=== PATIENT | male | born 1945 | race Caucasian/White ===

== ENCOUNTER 2018-01-11 10:19 | Emergency (ER) | payer MEDICARE, OTHER ==
[2018-01-11] MEDS: cefTRIAXone 1 GM, Lidocaine 1% 2.1 ML IM ONE ×2 (10:45)
--- NOTE | 2018-01-11 10:45 | EDM.PDOC ---
ED HPI GENERAL MEDICAL PROBLEM - General Chief Complaint: Upper Extremity Injury/Pain Stated Complaint: RED STREAK ON L WRIST,SWOLLEN L THUMB Time Seen by Provider: 01/11/18 10:30 Source of Information: Reports: Patient, Family History Limitations: Reports: No Limitations - History of Present Illness INITIAL COMMENTS - FREE TEXT/NARRATIVE: Patient reports that while fishing yesterday he caught a small mouth romano and it 's rangel cut him on the thumb. This morning he awoke with a red, how, swollen left thumb and a red streak going up his arm. He denies fever, chills, sweats, nausea, no blood in urine or stool, no diarrhea, no chest pain, shortness of breath or LOC. He has no other complaints and states he just wanted it checked out. Onset: Today, Sudden Duration: Getting Worse Location: Reports: Upper Extremity, Left Severity: Mild Improves with: Reports: None Left 1-Thumb Pain Score (Numeric/FACES): 6 - Related Data Allergies Allergy/AdvReac Type Severity Reaction Status Date / Time [id number] DYE Allergy Hives Uncoded 01/03/14 08:51 Home Meds: Home Meds Aspirin [Ecotrin] 1 tab PO DAILY 12/31/13 [History] Benazepril/Hydrochlorothiazide [Benazepril-HCTZ 20-12.5 MG] 1 tab PO DAILY 12/31 [History] Clopidogrel [Plavix] 1 tab PO DAILY 12/31/13 [History] Metoprolol Tartrate [Lopressor] 0.5 tab PO DAILY 12/31/13 [History] Nitroglycerin [Nitrostat] 1 tab SL PRN 12/31/13 [History] Polyvinyl Alcohol [LiquiTears 1.4% Ophth Soln] 1 drop EYEBOTH PRN 12/31/13 [ History] Simvastatin [Zocor] 1 tab PO DAILY 12/31/13 [History] Review of Systems - Review of Systems Review Of Systems: See Below Constitutional: Reports: No Symptoms Respiratory: Reports: No Symptoms Cardiovascular: Reports: No Symptoms GI/Abdominal: Reports: No Symptoms Musculoskeletal: Reports: Hand Pain (left thumb) Skin: Reports: Change in Color, Other (redness, swelling hot to touch, red streak up arm) ED EXAM, GENERAL - Physical Exam Exam: See Below Exam Limited By: No Limitations General Appearance: Alert, WD/WN, No Apparent Distress Peripheral Pulses: 2+: Radial (L), Radial (R) Extremities: Normal Range of Motion, Normal Capillary Refill, Joint Swelling, Redness Neurological: Alert, Oriented, CN II-XII Intact, Normal Cognition, Normal Gait, Normal Reflexes, No Motor/Sensory Deficits Skin Exam: Erythema, Increased Warmth, Other (red streak up arm) Course - Vital Signs Last Recorded V/S: Last Vital Signs Temp 37.6 C 01/11/18 10:33 Pulse 57 L 01/11/18 10:33 Resp 16 01/11/18 10:33 BP 144/57 H 01/11/18 10:33 Pulse Ox - Orders/Labs/Meds Meds: Medications Discontinued Medications Generic Name Dose Route Start Last Admin Trade Name Torres PRN Reason Stop Dose Admin Amoxicillin/Clavulanate Potassium 2 packet 01/11/18 10:38 Take Home: Amox/Clavulanate 875-12, 2 Tab Pac PO 01/11/18 10:39 ONETIME ONE Ceftriaxone Sodium 1 gm/ 0 gm 01/11/18 10:37 Lidocaine HCl 2.1 ml IM 01/11/18 10:38 ONETIME ONE Departure - Departure Time of Disposition: 10:55 Disposition: Home, Self-Care 01 Condition: Good Clinical Impression: Cellulitis of hand, left - Discharge Information *PRESCRIPTION DRUG MONITORING PROGRAM REVIEWED*: Not Applicable *COPY OF PRESCRIPTION DRUG MONITORING REPORT IN PATIENT MILLER: Not Applicable Instructions: Cellulitis, Adult, [id number]-Chih, Probiotics Additional Instructions: Follow up with your primary doctor this week if you do not get better in the next few days. I have prescribed you Augmentin 875/125 to take twice a day for a total of 10 days. Please complete the entire course unless you have signs of allergic reaction such as difficulty breathing, rash, hives. Take some probiotic tablets or eat more yogurt for the next few weeks. The antibiotic can alter your stomach bacteria and lead to an infection in the stomach which can be dangerous. If you have any additional questions or concerns, please call the emergency room at anytime. - Problem List & Annotations (1) Cellulitis of hand, left SNOMED Code(s): 37156799 Code(s): L03.114 - CELLULITIS OF LEFT UPPER LIMB Status: Acute Priority: Low - Problem List Review Problem List Initiated/Reviewed/Updated: Yes - Assessment/Plan Assessment:: left hand cellulitis Plan: Follow up with your primary doctor this week if you do not get better in the next few days. I have prescribed you Augmentin 875/125 to take twice a day for a total of 10 days. Please complete the entire course unless you have signs of allergic reaction such as difficulty breathing, rash, hives. Take some probiotic tablets or eat more yogurt for the next few weeks. The antibiotic can alter your stomach bacteria and lead to an infection in the stomach which can be dangerous. If you have any additional questions or concerns, please call the emergency room at anytime.
[2018-01-11] MEDS: Take Home: Amoxicillin/Clavulanate K 875-125 MG Tab, 2 Tab Pack PO ONE (11:15)
== END 2018-01-11 11:25 | disposition home or self-care (01) ==
LOC: VM.ED 10:19
DX: L03.114 Cellulitis of left upper limb (principal); Z79.82 Long term (current) use of aspirin; Z79.899 Other long term (current) drug therapy
CPT/HCPCS: 99283; A9270; J0696; 96372

== ENCOUNTER 2019-07-29 09:05 | Day surgery (SDC) | payer MEDICARE, OTHER ==
[2019-07-29] MEDS: Lactated Ringers 1,000 ML IV SCH (09:37)
[2019-07-29] MEDS ORDERED: fentaNYL 100 MCG/2 ML SDV ONE (09:50)
[2019-07-29] MEDS ORDERED: Propofol 200 MG/20 ML SDV ONE (09:51)
--- NOTE | 2019-07-29 19:13 | OR ---
DATE OF SURGERY: 07/29/2019. REFERRING PROVIDER: Victorina Landis MD PRE-OPERATIVE DIAGNOSES: History of colon polyps. Last colonoscopy was 12/2013. POST-OPERATIVE DIAGNOSES: Three small polyps removed. 1. A 6 mm polyp at 90 cm (near cecum), removed using hot snare. 2. A 5 mm polyp at 65 cm. This was removed using several bites of cold forceps. This could represent an inverted diverticulum. 3. A 3 mm polyp at 10 cm, removed using cold forceps. Moderate to significant diverticulosis diffusely, left greater than right. PROCEDURE: Colonoscopy with polypectomy x3 (one using hot snare and two using cold forceps). SURGEON: Gregorio Castro M.D. ANESTHESIA: Monitored anesthesia care. BOWEL PREP: Fair. The patient required moderate amount of irrigation and suctioning. Aniket is a 74-year-old male was brought to the endoscopy suite after discussing risks and benefits of the procedure. Informed consent was obtained for conscious sedation and colonoscopy with or without biopsy and/or polypectomy. We also discussed possibility of missed lesions. Pre-procedure exam was unremarkable. IV, oxygen, and monitors were placed. The patient was placed in the left lateral decubitus position. Sedation was administered and a digital rectal exam was performed, which was unremarkable. Colonoscope was passed into the rectum and slowly advanced all the way to the cecum. Cecum was viewed and photographed. The colonoscope was slowly withdrawn and the mucosa was closed observed in a direct circumferential manner. The ascending colon revealed a 6 mm polyp at 90 cm near the entry to the cecum. This was removed using hot snare. The transverse colon revealed a 5 mm polyp at 65 cm. This was removed using 3 bites of cold forceps. This particular polyp could represent inverted tic. The descending colon revealed moderate to significant diverticulosis. The sigmoid colon revealed moderate to significant diverticulosis. The diverticulosis was present diffusely, but left greater than right. Retroflexion was performed and rectal mucosa revealed 3 mm polyp at 10 cm, removed using cold forceps. Scope was removed. The patient tolerated the procedure well. The patient was monitored until that baseline status. Discharge instructions were reviewed and the patient was discharged in good condition. COMPLICATIONS: None. TOTAL TIME: 30 minutes. ESTIMATED BLOOD LOSS: About 1 mL. RECOMMENDATIONS/FOLLOW-UP: We will await for results of path report to determine ideal followup interval. I will have the patient hold his aspirin for 3 days to limit any chance of bleeding from the polypectomy sites. I would like to kindly thank Dr. Landis for this referral. DMB: 07/29/2019 13:16:54 MODL: 07/29/2019 19:08:08 /[id number]
== END 2019-07-29 12:45 | disposition home or self-care (01) ==
LOC: VM.SDS 09:05
PROVIDERS: ATTEND Family Medicine
DX: Z12.11 Encounter for screening for malignant neoplasm of colon (principal); D12.6 Benign neoplasm of colon, unspecified; K57.30 Diverticulosis of large intestine without perforation or abscess without bleeding; I10 Essential (primary) hypertension; G20 Parkinson's disease; E78.00 Pure hypercholesterolemia, unspecified; G47.33 Obstructive sleep apnea (adult) (pediatric); Z86.010 Personal history of colon polyps; Z79.899 Other long term (current) drug therapy; Z79.82 Long term (current) use of aspirin; Z91.041 Radiographic dye allergy status; Z87.891 Personal history of nicotine dependence
CPT/HCPCS: 00811; 45380; 45384; 45385; 88305; J2704; J3010; J7120

== ENCOUNTER 2019-08-29 20:07 | Emergency (ER) | payer MEDICARE, OTHER ==
--- NOTE | 2019-08-29 20:53 | EDM.PDOC ---
ED HPI GENERAL MEDICAL PROBLEM - General Chief Complaint: Laceration Stated Complaint: FELL IN GABRIELA MORILLO;HURT R EYE Time Seen by Provider: 08/29/19 20:07 Source of Information: Reports: Patient History Limitations: Reports: No Limitations - History of Present Illness INITIAL COMMENTS - FREE TEXT/NARRATIVE: Pt. presents to ER with complaints of laceration to R orbit/eyelid. He states that he was trimming some rosebushes and lost his balance, falling face-first into the bushes. He denies striking his head on a solid object, stating his face came in contact with a branch. He is no on any blood thinners. Pt. denies any injury other than what is isolated to his eye area. Denies any eye pain. No occular pain. He denies any vision loss or change. No vision loss or headache. Onset: Today Location: Reports: Face Quality: Reports: Sharp - Related Data Allergies Allergy/AdvReac Type Severity Reaction Status Date / Time [id number] DYE Allergy Severe Hives Uncoded 08/29/19 20:55 Home Meds: Home Meds Acetaminophen [Tylenol Arthritis Pain] 1,300 mg PO Q8H PRN 01/11/18 [History] Aspirin [Halfprin] 81 mg PO DAILY 01/20/19 [History] Metoprolol Succinate [Toprol XL] 25 mg PO DAILY 01/20/19 [History] Triamterene/Hydrochlorothiazid [Triamterene-HCTZ 37.5-25 MG] 1 each PO DAILY 03/30 [History] Fluticasone/Vilanterol [Breo Ellipta 200-25 MCG Inhalation Kit] 1 each IH DAILY 07/15/19 [History] Oxygen 6.5 l [place] BEDTIME 07/15/19 [History] Sertraline [Zoloft] 50 mg PO DAILY 07/15/19 [History] Simvastatin [Zocor] 40 mg PO BEDTIME 07/15/19 [History] Past Medical History HEENT History: Reports: Cataract, Other (See Below) Other HEENT History: dental caries Cardiovascular History: Reports: CAD, High Cholesterol, Hypertension, Other ( See Below) Other Cardiovascular History: bilateral carotid artery stenosis. nonrheumatic aortic valva stenosis. thorcic aortic aortic aneurysm without rupture. bradycardia. sick sinus syndrome. NSTEMI - 07/29/2018. stent - 2005 Respiratory History: Reports: Sleep Apnea, Other (See Below) Other Respiratory History: central sleep apnea duo to Garo-jose respirations. multiple pulmonary nodules Gastrointestinal History: Reports: Colon Polyp, Other (See Below) Other Gastrointestinal History: hx [place] H.pylori - 1986 Musculoskeletal History: Reports: Arthritis Other Musculoskeletal History: synovitis wrist. patellar bursitis of right knee. fatigue. duputyren's contracture hand. flank pain Neurological History: Reports: Parkinson's, Other (See Below) Other Neuro History: cerebrovascular disease. r hand tremor Psychiatric History: Reports: Depression Endocrine/Metabolic History: Reports: Obesity/BMI 30+ Other Endocrine/Metabolic History: hyperglycemia Immunologic History: Reports: Other (See Below) Other Immunologic History: seropositive rheumatoid arthritis Dermatologic History: Reports: Other (See Below) Other Dermatologic History: actinic keratosis - Past Surgical History Cardiovascular Surgical History: Reports: Other (See Below) Other Cardiovascular Surgeries/Procedures: CABGx3 - 12/24/2018 GI Surgical History: Reports: Appendectomy, Cholecystectomy, Colonoscopy Social & Family History - Family History Family Medical History: Noncontributory - Caffeine Use Caffeine Use: Reports: Coffee ED ROS GENERAL - Review of Systems Review Of Systems: Comprehensive ROS is negative, except as noted in HPI. ED EXAM, SKIN/RASH Exam: See Below Exam Limited By: No Limitations General Appearance: Alert, WD/WN, No Apparent Distress Eye Exam: Bilateral Eye: EOMI, Normal Fundi, Normal Inspection, PERRL, Other (2 subcentimeter lacerations to R medial orbit/upper eyelid. No occular trauma noted. No erythema to eye. No obvious occular trauma. No deformity to orbit.) ED SKIN PROCEDURES - Laceration/Wound Repair Right Upper Face Appearance: Subcutaneous Anesthetic Type: Local Local Anesthesia - Lidocaine (Xylocaine): 1% Plain Local Anesthetic Volume: 2cc Skin Prep: Chlorhexidine (Hibiciens), Saline Exploration/Debridement/Repair: Wound Explored Closed with: Sutures Lac/Wound length In cm: 2 Suture Size: 6-0 Suture Type: Nylon Progress/Comments: 2 sub centimeter lacerations to R medial orbit area. Each laceration was closed with 6-0 nylon suture. Course - Orders/Labs/Meds Meds: Medications Discontinued Medications Generic Name Dose Route Start Last Admin Trade Name Freq PRN Reason Stop Dose Admin Lidocaine HCl 5 ml 08/29/19 20:17 08/29/19 20:23 Xylocaine-Mpf 1% INJECT 08/29/19 20:18 5 ml ONETIME ONE Administration Departure - Departure Time of Disposition: 20:58 Disposition: Home, Self-Care 01 Clinical Impression: Laceration - Discharge Information Instructions: Laceration Care, Adult Referrals: Victorina Landis MD [Primary Care Provider] - Additional Instructions: Sutures out in 10 days in clinic Keep area dry for 24 hours Tylenol as needed for discomfort Sepsis Event Note - Focused Exam Date Exam was Performed: 08/29/19 Time Exam was Performed: 21:02 - Problem List Review Problem List Initiated/Reviewed/Updated: Yes - Assessment/Plan Plan: Sutures out in 10 days. Keep area dry for 24 hours. Return if redness, swelling , or discharge from the area. Return to ER if you have any acute vision loss or change.
== END 2019-08-29 20:39 | disposition home or self-care (01) ==
LOC: VM.ED 20:07
DX: S01.111A Laceration without foreign body of right eyelid and periocular area, initial encounter (principal); I25.10 Atherosclerotic heart disease of native coronary artery without angina pectoris; E78.00 Pure hypercholesterolemia, unspecified; I10 Essential (primary) hypertension; M19.90 Unspecified osteoarthritis, unspecified site; G20 Parkinson's disease; F32.9 Major depressive disorder, single episode, unspecified; E66.9 Obesity, unspecified; Z68.31 Body mass index [BMI] 31.0-31.9, adult; Z91.041 Radiographic dye allergy status; Z79.82 Long term (current) use of aspirin; Z79.899 Other long term (current) drug therapy; W01.0XXA Fall on same level from slipping, tripping and stumbling without subsequent striking against object, initial encounter
CPT/HCPCS: 12011; 99282; 99283; J2001

== ENCOUNTER 2020-05-13 13:03 | Emergency (ER) | payer MEDICARE, OTHER ==
[2020-05-13] MEDS ORDERED: Morphine 2 MG/ML SYRINGE IVPUSH ONE (13:18)
[2020-05-13] MEDS ORDERED: Ondansetron 4 MG/2 ML SDV IVPUSH ONE (13:19)
--- NOTE | 2020-05-13 13:26 | EDM.PDOC ---
ED HPI GENERAL MEDICAL PROBLEM - General Chief Complaint: Abdominal Pain Stated Complaint: ABDOMINAL PAIN Time Seen by Provider: 05/13/20 13:05 Source of Information: Reports: Patient History Limitations: Reports: No Limitations - History of Present Illness INITIAL COMMENTS - FREE TEXT/NARRATIVE: Patient presents the ER with intense abdominal pain he cannot quantify number said it just hurts extremely bad started approximately 930 this morning and gotten worse. Patient states he got up about 8 had a couple coffee and had some mild discomfort ate a orange about an hour later the pain started has been on relentless. Says he has mild nausea at this time no vomiting last bowel movement was 3 days ago he normally goes every day or every other day. He has had a cholecystectomy and appendectomy in the past positive coronary artery disease history negative AAA with his self or family members Onset: Today, Sudden Duration: Hour(s): Location: Reports: Abdomen (all over ) Quality: Reports: Ache, Pressure, Stabbing Severity: Severe Improves with: Reports: None Associated Symptoms: Reports: No Other Symptoms Abdominal Pain Score (Numeric/FACES): 9 - Related Data Allergies Allergy/AdvReac Type Severity Reaction Status Date / Time [id number] DYE Allergy Severe Hives Uncoded 05/13/20 13:50 Home Meds: Home Meds Acetaminophen [Tylenol Arthritis Pain] 1,300 mg PO Q8H PRN 01/11/18 [History] Aspirin [Halfprin] 81 mg PO DAILY 01/20/19 [History] Metoprolol Succinate [Toprol XL] 25 mg PO DAILY 01/20/19 [History] Triamterene/Hydrochlorothiazid [Triamterene-HCTZ 37.5-25 MG] 1 each PO DAILY 01/20/19 [History] Fluticasone/Vilanterol [Breo Ellipta 200-25 MCG Inhalation Kit] 1 each IH DAILY 07/15/19 [History] Oxygen 6.5 l [place] BEDTIME 07/15/19 [History] Sertraline [Zoloft] 50 mg PO DAILY 07/15/19 [History] Simvastatin [Zocor] 40 mg PO BEDTIME 07/15/19 [History] Past Medical History HEENT History: Reports: Cataract, Other (See Below) Other HEENT History: dental caries Cardiovascular History: Reports: CAD, High Cholesterol, Hypertension, Other (See Below) Other Cardiovascular History: bilateral carotid artery stenosis. nonrheumatic aortic valva stenosis. thorcic aortic aortic aneurysm without rupture. bradycardia. sick sinus syndrome. NSTEMI - 07/29/2018. stent - 2004 Respiratory History: Reports: Sleep Apnea, Other (See Below) Other Respiratory History: central sleep apnea duo to Garo-jose respirations. multiple pulmonary nodules Gastrointestinal History: Reports: Colon Polyp, Other (See Below) Other Gastrointestinal History: hx [place] H.pylori - 1986 Musculoskeletal History: Reports: Arthritis Other Musculoskeletal History: synovitis wrist. patellar bursitis of right knee. fatigue. duputyren's contracture hand. flank pain Neurological History: Reports: Parkinson's, Other (See Below) Other Neuro History: cerebrovascular disease. r hand tremor Psychiatric History: Reports: Depression Endocrine/Metabolic History: Reports: Obesity/BMI 30+ Other Endocrine/Metabolic History: hyperglycemia Immunologic History: Reports: Other (See Below) Other Immunologic History: seropositive rheumatoid arthritis Dermatologic History: Reports: Other (See Below) Other Dermatologic History: actinic keratosis - Past Surgical History Cardiovascular Surgical History: Reports: Other (See Below) Other Cardiovascular Surgeries/Procedures: CABGx3 - 12/24/2018 GI Surgical History: Reports: Appendectomy, Cholecystectomy, Colonoscopy Social & Family History - Family History Family Medical History: No Pertinent Family History - Caffeine Use Caffeine Use: Reports: Coffee ED ROS GENERAL - Review of Systems Review Of Systems: See Below Constitutional: Reports: No Symptoms HEENT: Reports: No Symptoms Respiratory: Reports: No Symptoms Cardiovascular: Reports: No Symptoms Endocrine: Reports: No Symptoms GI/Abdominal: Reports: Abdominal Pain, Constipation, Distension, Nausea. Denies: Black Stool, Diarrhea, Decreased Appetite, Hematemesis, Hematochezia, Vomiting : Reports: No Symptoms Musculoskeletal: Reports: No Symptoms Skin: Reports: No Symptoms Neurological: Reports: No Symptoms Psychiatric: Reports: No Symptoms Hematologic/Lymphatic: Reports: No Symptoms Immunologic: Reports: No Symptoms ED EXAM, GI/ABD - Physical Exam Exam: See Below Exam Limited By: No Limitations General Appearance: Alert, WD/WN, Mild Distress, Other (Patient noted to be writhing in bed). No: No Apparent Distress Eyes: Bilateral: Normal Appearance Nose: Normal Inspection Throat/Mouth: Normal Inspection, Normal Lips, Normal Teeth, Normal Gums, Normal Oropharynx, Normal Voice, No Airway Compromise Neck: Normal Inspection, Supple, Non-Tender, Full Range of Motion Respiratory/Chest: No Respiratory Distress, Lungs Clear, Normal Breath Sounds, No Accessory Muscle Use, Chest Non-Tender Cardiovascular: Normal Peripheral Pulses, Regular Rate, Rhythm, No Edema, No Gallop, No JVD, No Murmur, No Rub GI/Abdominal Exam: Soft, Guarding, Other (No noted bowel sounds but the patient limited my exam secondary to pain kept pushing my hand away he did have a negative pelvic rock negative heel slap). No: Normal Bowel Sounds, Non-Tender, No Distention Back Exam: Normal Inspection, Full Range of Motion Extremities: Normal Inspection, Normal Range of Motion, Non-Tender, No Pedal Edema, Normal Capillary Refill. No: Joint Swelling Neurological: Alert, Oriented, CN II-XII Intact, Normal Cognition Psychiatric: Normal Affect, Normal Mood Skin Exam: Warm, Dry, Intact, Normal Color, No Rash Course - Vital Signs Text/Narrative:: CBC CMP sed rate Morphine Zofran for pain CT abdomen pelvis noncontrasted secondary to contrast allergy LABS WNL CT RESULTS [facility] CALLED [facility] WITH Dr BAUMANN will accept pt and transfer 1428 Last Recorded V/S: Last Vital Signs Temp 35.5 C L 05/13/20 13:05 Pulse 65 05/13/20 13:05 Resp 16 05/13/20 13:05 BP 153/96 H 05/13/20 13:05 Pulse Ox 96 05/13/20 13:05 - Orders/Labs/Meds Orders: Active Orders 24 hr Category Date Time Status EKG Documentation Completion [RC] STAT Care 05/13/20 13:19 Active Labs: Laboratory Tests 05/13/20 05/13/20 Range/Units 13:20 13:20 WBC 8.4 (4.0-10.0) x10^3/uL RBC 5.38 (4.5-6.0) x10^6/uL Hgb 16.4 (14.0-18.0) g/dL Hct 47.8 (40.0-52.0) % MCV 88.8 (78.0-93.0) fL MCH 30.5 (26.0-32.0) pg MCHC 34.3 (32.0-36.0) g/dL RDW Coeff of Dirk 13.7 (10.0-15.0) % Plt Count 155 (130-400) x10^3/uL Neut % (Auto) 66.3 (50.0-80.0) % Lymph % (Auto) 26.3 (25.0-50.0) % Estill % (Auto) 6.5 (2.0-11.0) % Eos % (Auto) 0.5 (0.0-4.0) % Baso % (Auto) 0.4 (0.2-1.2) % ESR 3 (0-15) mm/hr Sodium 144 (136-145) mmol/L Potassium 3.6 (3.5-5.1) mmol/L Chloride 105 (98-107) mmol/L Carbon Dioxide 31 (21-32) mmol/L Anion Gap 11.6 (10-20) mmol/L BUN 13 (7-18) mg/dL Creatinine 1.1 (0.70-1.30) mg/dL Est Cr Clr Drug Dosing TNP Estimated GFR (MDRD) > 60 Glucose 128 H (74-106) mg/dL Calcium 9.4 (8.5-10.1) mg/dL Meds: Medications Discontinued Medications Generic Name Dose Route Start Last Admin Trade Name Freq PRN Reason Stop Dose Admin Hydromorphone HCl 1 mg 05/13/20 14:14 05/13/20 14:19 Dilaudid IVPUSH 05/13/20 14:15 1 mg ONETIME ONE Administration Morphine Sulfate 2 mg 05/13/20 13:18 05/13/20 13:28 Morphine IVPUSH 05/13/20 13:19 2 mg ONETIME ONE Administration Morphine Sulfate 4 mg 05/13/20 13:36 05/13/20 13:41 Morphine IVPUSH 05/13/20 13:37 4 mg ONETIME ONE Administration Ondansetron HCl 4 mg 05/13/20 13:19 05/13/20 13:28 Zofran IVPUSH 05/13/20 13:20 4 mg ONETIME ONE Administration Departure - Departure Time of Disposition: 14:25 Disposition: Home, Self-Care 01 Condition: Good Clinical Impression: Small bowel obstruction - Discharge Information *PRESCRIPTION DRUG MONITORING PROGRAM REVIEWED*: No *COPY OF PRESCRIPTION DRUG MONITORING REPORT IN PATIENT MILLER: No Forms: ED Department Discharge Sepsis Event Note (ED) - Focused Exam Vital Signs: Vital Signs Temp Pulse Resp BP Pulse Ox 05/13/20 13:05 35.5 C L 65 16 153/96 H 96 - Problem List & Annotations (1) Small bowel obstruction SNOMED Code(s): 886438710 Code(s): K56.609 - UNSP INTESTNL OBST, UNSP TO PARTIAL VERSUS COMPLETE OBST Status: Acute Current Visit: Yes - My Orders Last 24 Hours: My Active Orders 05/13/20 13:19 EKG Documentation Completion [RC] STAT - Assessment/Plan Last 24 Hours: My Active Orders 05/13/20 13:19 EKG Documentation Completion [RC] STAT
[2020-05-13] MEDS ORDERED: Morphine 4 MG/ML Syringe IVPUSH ONE (13:36)
[2020-05-13 13:44] LABS: ANION GAP 11.6 mmol/L (10-20); CHLORIDE,CL 105 mmol/L (98-107); SODIUM,NA 144 mmol/L (136-145)
--- NOTE | 2020-05-13 14:06 | CT ---
[id number] CT/CT Abdomen Pelvis WO IV Exam: CT Abdomen Pelvis WO IV Clinical Data: ABDOMINAL PAIN COMPARISON: NO PREVIOUS SIMILAR EXAM IS AVAILABLE FINDINGS: There is moderate small bowel distention There is no free air or free fluid There is no bowel wall thickening The gallbladder has been removed The appendix is not seen There is no evidence of appendicitis The pelvis shows no mass or adenopathy There are diffuse atheromatous calcifications There is mild ectasia of the abdominal aorta The liver and spleen, adrenals, kidneys, and pancreas otherwise show no acute abnormalities IMPRESSION: PARTIAL VERSUS EARLY SMALL BOWEL OBSTRUCTION Abel Portillo MD 05/13/20 [id number] Thank you for allowing us to participate in the care of your patient.
[2020-05-13] MEDS ORDERED: HYDROmorphone 1 MG/ML Syringe IVPUSH ONE (14:14)
[2020-05-13] MEDS ORDERED: Sodium Chloride 0.9% 1,000 ML IV ONE (14:37)
== END 2020-05-13 15:40 | disposition home or self-care (01) ==
LOC: VM.ED 13:03
DX: K56.609 Unspecified intestinal obstruction, unspecified as to partial versus complete obstruction (principal); I25.10 Atherosclerotic heart disease of native coronary artery without angina pectoris; E78.00 Pure hypercholesterolemia, unspecified; I10 Essential (primary) hypertension; M19.90 Unspecified osteoarthritis, unspecified site; G20 Parkinson's disease; F32.9 Major depressive disorder, single episode, unspecified; E66.9 Obesity, unspecified; Z68.32 Body mass index [BMI] 32.0-32.9, adult; Z91.041 Radiographic dye allergy status; Z79.82 Long term (current) use of aspirin; Z79.899 Other long term (current) drug therapy; Z86.73 Personal history of transient ischemic attack (TIA), and cerebral infarction without residual deficits
CPT/HCPCS: 74176; 80048; 85025; 85652; 93005; 96374; 96375; 99284; 99285-25; J1170; J2270; J2405; J7030